=== PATIENT | female | born 1945 | race Caucasian/White ===

== ENCOUNTER 2017-10-01 17:24 | Inpatient (IN) | payer MEDICARE, OTHER ==
[~2017-10-01] VITALS: Ht 162.6 cm; Wt 80.0 kg
[2017-10-01 11:00] VITALS: BP 117/61
[~2017-10-01 17:24] MED LIST: ALPR1TAB7 PO; AMLO2.5T2 PO; ASPI-12 PO; BUSP10TA11 PO; CELE200C PO; CEPH500C5 PO; CETI-102 PO; CHLO500T2 PO; D-MA1POW PO; DIVA250T6 PO; DIVA500T7 PO; DOCU100C40 PO; FENO45CA2 PO; FLUO15OI15 TOP; GABA600T2 PO; GLIP1TAB5 PO; HYDR-565 PO; LACT1TAB27 PO; LEVO25TA7 PO; LOP25T PO; ONDA4TAB12 PO; OXYB15TA PO; PANT40TA39 PO; PHEN51GE TP; POLY17PO10 PO; PRIM50TA31 PO; ROPI0.5T PO; SENN8.6C6 PO; TOLT2CAP PO; TRAZ-146 PO; VENL150T3 PO; VENL75TA4 PO; WHEA98PO PO; ZOL50T PO; [UNRECOGNIZED DRUG - CODE] PO
[2017-10-01] MEDS ORDERED: methylPREDNISolone sod succ 125mg/2ml vial IV ONE (17:30)
[2017-10-01] MEDS ORDERED: albuterol 2.5 MG/3 ML nebule NEB ONE (17:30)
[2017-10-01 18:45] LABS: ALANINE AMINOTRANSFERASE 22 U/L (12-78); ALBUMIN 3.1 G/DL (3.4-5.0); ALBUMIN/GLOBULIN RATIO 0.8 (1.1-1.5); ALKALINE PHOSPHATASE 80 IU/L (46-116); ANION GAP 12 (8-16); ASPARTATE AMINO TRANSFERASE 18 U/L (10-37); BILIRUBIN,TOTAL 0.2 MG/DL (0.1-1.0); BLOOD UREA NITROGEN 34 MG/DL (7-18); BUN/CREATININE RATIO 34.3 (6.6-38.0); CHLORIDE 105 MMOL/L (99-107); CREATININE 0.99 MG/DL (0.40-0.90); GLUCOSE 181 MG/DL (70-104); POTASSIUM 4.4 MMOL/L (3.5-5.1); SODIUM 141 MMOL/L (135-145); TOTAL CARBON DIOXIDE 23.7 MMOL/L (24-32); TOTAL PROTEIN 6.9 G/DL (6.4-8.2); eGFR 55 ML/MIN
[2017-10-01] MEDS: cefepime 1GM/NS ADD-VANTAGE 100 ML IV SCH ×2 (18:53→23:45)
[2017-10-01 18:59] LABS: BASOPHILS % (AUTO) 0.3 % (0-1); EOSINOPHILS # (AUTO) 0.2 X10'3 (0-0.9); EOSINOPHILS % (AUTO) 2.5 % (0-6); HEMOGLOBIN 11.5 g/dl (12.0-16.0); LYMPHOCYTES # (AUTO) 1.3 X10'3 (1.1-4.8); LYMPHOCYTES % (AUTO) 14.1 % (21-51); MEAN CORPUSCULAR HEMOGLOBIN 29.9 PG (27.0-31.0); MEAN CORPUSCULAR HGB CONC 33.8 % (33.0-36.5); MEAN CORPUSCULAR VOLUME 88.4 FL (78-98); MONOCYTES # (AUTO) 0.6 X10'3 (0-0.9); MONOCYTES % (AUTO) 6.7 % (2-12); NEUTROPHILS % (AUTO) 76.4 % (42-75); PLATELET COUNT 269 X10'3 (140-440); RED BLOOD COUNT 3.84 X10'6 (4.20-5.60); RED CELL DISTRIBUTION WIDTH 12.7 % (11.5-14.5); WHITE BLOOD COUNT 9.1 X10'3 (4.5-11.0)
[2017-10-01] MEDS ORDERED: ASPI-612 (21:48)
[2017-10-01] MEDS ORDERED: CLON1PAT15 TOP (21:53)
[2017-10-01] MEDS ORDERED: INSU100V5 IJ (21:56)
[2017-10-01] MEDS ORDERED: ESOM20CA PO (21:56)
[2017-10-01] MEDS ORDERED: LANTUS SQ (21:58)
[2017-10-01] MEDS ORDERED: MAGN54LI PO (22:00)
[2017-10-01] MEDS ORDERED: ondansetron/PF 4mg/2ml inj IV PRN (22:00)
[2017-10-01] MEDS ORDERED: albuterol 2.5 MG/3 ML nebule NEB PRN (22:00)
[2017-10-01] MEDS ORDERED: PRAV10TA39 PO (22:01)
[2017-10-01] MEDS ORDERED: MULT-685 (22:01)
[2017-10-01] MEDS ORDERED: VALS80TA26 PO (22:02)
[2017-10-01] MEDS ORDERED: VALP250S3 (22:04)
[2017-10-01] MEDS ORDERED: glucagon, human recombinant 1mg kit SUBCUT PRN (22:05)
[2017-10-01] MEDS ORDERED: dextrose ORAL solution 15 GM/59 ML bottle PO PRN ×2 (22:05)
[2017-10-01] MEDS ORDERED: dextrose 50%-water 50ml dispensing syringe IV PRN ×2 (22:05)
[2017-10-01] MEDS ORDERED: insulin Lispro (HumaLOG) vial - multi-dose SQ SCH (22:05)
[2017-10-01] MEDS ORDERED: MESSAGE TO PHARMACY PO ONE (22:05)
[2017-10-01] MEDS ORDERED: VALP250S4 (22:09)
[2017-10-01] MEDS ORDERED: OFLO5DRO3 (22:13)
[2017-10-01] MEDS ORDERED: cloNIDine 0.2 MG/24 HR patch (7 day patch) TD SCH (22:30)
[2017-10-01 23:14] LABS: HEMOGLOBIN A1C 5.9 % (4.5-6.2)
[2017-10-01 23:30] VITALS: BP 117/61
[2017-10-01] MEDS: normal saline 1000ml 1,000 ML IV SCH (23:48)
[2017-10-02 05:00] VITALS: BP 122/71
[2017-10-02 06:43] LABS: BASOPHILS % (AUTO) 0 % (0-1); EOSINOPHILS # (AUTO) 0.1 X10'3 (0-0.9); EOSINOPHILS % (AUTO) 0.8 % (0-6); HEMATOCRIT 30.4 % (35.0-45.0); HEMOGLOBIN 10.6 g/dl (12.0-16.0); LYMPHOCYTES # (AUTO) 0.8 X10'3 (1.1-4.8); LYMPHOCYTES % (AUTO) 8.8 % (21-51); MEAN CORPUSCULAR HEMOGLOBIN 30.4 PG (27.0-31.0); MEAN CORPUSCULAR HGB CONC 34.9 % (33.0-36.5); MEAN CORPUSCULAR VOLUME 87.1 FL (78-98); MEAN PLATELET VOLUME 7.7 FL (7.4-10.4); MONOCYTES # (AUTO) 0.4 X10'3 (0-0.9); MONOCYTES % (AUTO) 5.2 % (2-12); NEUTROPHILS # (AUTO) 7.3 X10'3 (1.8-7.7); NEUTROPHILS % (AUTO) 85.2 % (42-75); PLATELET COUNT 254 X10'3 (140-440); RED BLOOD COUNT 3.49 X10'6 (4.20-5.60); RED CELL DISTRIBUTION WIDTH 12.9 % (11.5-14.5); WHITE BLOOD COUNT 8.6 X10'3 (4.5-11.0)
[2017-10-02] MEDS ORDERED: levoTHYROXINE 25mcg tablet PO SCH (07:00)
[2017-10-02 07:07] LABS: ALANINE AMINOTRANSFERASE 23 U/L (12-78); ALBUMIN/GLOBULIN RATIO 0.8 (1.1-1.5); ALKALINE PHOSPHATASE 72 IU/L (46-116); ANION GAP 10 (8-16); ASPARTATE AMINO TRANSFERASE 17 U/L (10-37); BILIRUBIN,TOTAL 0.2 MG/DL (0.1-1.0); BLOOD UREA NITROGEN 39 MG/DL (7-18); BUN/CREATININE RATIO 39.4 (6.6-38.0); CALCIUM 9.1 MG/DL (8.5-10.1); CHLORIDE 107 MMOL/L (99-107); CREATININE 0.99 MG/DL (0.40-0.90); GLUCOSE 142 MG/DL (70-104); POTASSIUM 5.2 MMOL/L (3.5-5.1); SODIUM 143 MMOL/L (135-145); TOTAL CARBON DIOXIDE 25.8 MMOL/L (24-32); TOTAL PROTEIN 6.7 G/DL (6.4-8.2); eGFR 55 ML/MIN
[2017-10-02] MEDS: cefepime 1GM/NS ADD-VANTAGE 100 ML IV SCH ×3 (07:27→23:26)
[2017-10-02] MEDS: pantoprazole 40 MG vial IV SCH (07:30)
[2017-10-02] MEDS: heparin, porcine 5000 units/ml vial SQ SCH ×2 (07:30→20:49)
[2017-10-02] MEDS ORDERED: GLIPIZIDE PO SCH (08:00)
[2017-10-02] MEDS ORDERED: MAGNESIUM CARBONATE PO SCH (08:00)
[2017-10-02] MEDS ORDERED: metoprolol tartrate 25mg tablet PO SCH (08:00)
[2017-10-02] MEDS ORDERED: METFORMIN HCL PO SCH (08:00)
[2017-10-02 10:00] VITALS: BP 128/65
[2017-10-02] MEDS ORDERED: ondansetron 4mg rapidly disintigrating tab PO PRN (14:30)
[2017-10-02] MEDS: normal saline 1000ml 1,000 ML IV SCH (15:42)
[2017-10-02] MEDS ORDERED: lactobacillus rhamnosus 10,000 MMU CELLS/CAPSULE PO SCH (17:30)
[2017-10-02 18:10] VITALS: BP 139/74
[2017-10-02] MEDS ORDERED: acetaminophen 650mg rectal suppository RC PRN (19:00)
[2017-10-02 19:32] LABS: VALPROATE < 3.0 UG/ML (50-100)
[2017-10-02] MEDS: docusate sod 100mg capsule PO SCH (20:00)
[2017-10-02] MEDS ORDERED: metoprolol tartrate 50mg tablet PO SCH (20:00)
[2017-10-02] MEDS ORDERED: ALPRAZolam 0.5mg tablet PO SCH (20:00)
[2017-10-02] MEDS: aspirin 300mg supp.rect RC SCH (20:49)
[2017-10-02] MEDS: valproate sod inj 500 MG in normal saline 100ml IV soln 95 ML IV SCH (20:49)
[2017-10-02] MEDS ORDERED: insulin glargine (Lantus) pen - multi-dose SQ SCH (21:00)
[2017-10-02] MEDS: insulin glargine (Lantus) pen - multi-dose SQ SCH (21:00)
[2017-10-02] MEDS ORDERED: primidone 50mg tablet PO SCH (21:00)
[2017-10-02] MEDS ORDERED: valproate sod 250mg/5ml UD oral syrup PEG SCH (21:00)
[2017-10-02 22:00] VITALS: BP 156/84
[2017-10-02] MEDS: LORazepam 2 mg/ml vial IV PRN (23:39)
[2017-10-03 06:00] VITALS: BP 153/96
[2017-10-03 06:40] LABS: BASOPHILS % (AUTO) 0.5 % (0-1); EOSINOPHILS # (AUTO) 0.2 X10'3 (0-0.9); EOSINOPHILS % (AUTO) 3.6 % (0-6); HEMATOCRIT 32.2 % (35.0-45.0); HEMOGLOBIN 11.1 g/dl (12.0-16.0); LYMPHOCYTES # (AUTO) 1.1 X10'3 (1.1-4.8); MEAN CORPUSCULAR HEMOGLOBIN 30.3 PG (27.0-31.0); MEAN CORPUSCULAR HGB CONC 34.4 % (33.0-36.5); MEAN CORPUSCULAR VOLUME 88.2 FL (78-98); MEAN PLATELET VOLUME 7.8 FL (7.4-10.4); MONOCYTES # (AUTO) 0.6 X10'3 (0-0.9); MONOCYTES % (AUTO) 8.9 % (2-12); NEUTROPHILS # (AUTO) 4.4 X10'3 (1.8-7.7); PLATELET COUNT 251 X10'3 (140-440); RED BLOOD COUNT 3.65 X10'6 (4.20-5.60); RED CELL DISTRIBUTION WIDTH 12.7 % (11.5-14.5); WHITE BLOOD COUNT 6.3 X10'3 (4.5-11.0)
[2017-10-03 06:58] LABS: ALANINE AMINOTRANSFERASE 22 U/L (12-78); ALBUMIN/GLOBULIN RATIO 0.8 (1.1-1.5); ALKALINE PHOSPHATASE 75 IU/L (46-116); ANION GAP 12 (8-16); ASPARTATE AMINO TRANSFERASE 15 U/L (10-37); BILIRUBIN,TOTAL 0.4 MG/DL (0.1-1.0); BLOOD UREA NITROGEN 21 MG/DL (7-18); BUN/CREATININE RATIO 22.6 (6.6-38.0); CALCIUM 8.8 MG/DL (8.5-10.1); CHLORIDE 108 MMOL/L (99-107); CREATININE 0.93 MG/DL (0.40-0.90); GLUCOSE 88 MG/DL (70-104); POTASSIUM 4.5 MMOL/L (3.5-5.1); SODIUM 146 MMOL/L (135-145); TOTAL CARBON DIOXIDE 25.6 MMOL/L (24-32); TOTAL PROTEIN 6.7 G/DL (6.4-8.2); eGFR 60 ML/MIN
[2017-10-03] MEDS: normal saline 1000ml 1,000 ML IV SCH ×2 (07:16→17:47)
[2017-10-03] MEDS ORDERED: cetirizine 10mg tablet PO SCH (08:00)
[2017-10-03] MEDS ORDERED: atorvastatin 10mg tablet PO SCH (08:00)
[2017-10-03] MEDS: docusate sod 100mg capsule PO SCH ×2 (08:00→19:02)
[2017-10-03] MEDS ORDERED: non-formulary drug (Esomeprazole Mag Trihydrate* (Nexium*) 1 CAP) PO SCH (08:00)
[2017-10-03] MEDS ORDERED: valproate sod 250mg/5ml UD oral syrup PEG SCH (08:00)
[2017-10-03] MEDS ORDERED: aspirin 81mg tablet.DR PO SCH (08:00)
[2017-10-03] MEDS: heparin, porcine 5000 units/ml vial SQ SCH ×2 (08:46→20:11)
[2017-10-03] MEDS: VALPROATE SOD IV SCH (08:47)
[2017-10-03] MEDS: pantoprazole 40 MG vial IV SCH (08:47)
[2017-10-03] MEDS: NORMAL SALINE IV SCH (08:47)
[2017-10-03 10:07] VITALS: BP 139/73
[2017-10-03] MEDS ORDERED: cloNIDine 0.2 MG/24 HR patch (7 day patch) TD SCH (10:10)
[2017-10-03] MEDS ORDERED: LEVO500T2 PO (11:19)
[2017-10-03] MEDS: cefepime 1GM/NS ADD-VANTAGE 100 ML IV SCH ×3 (11:40→23:58)
[2017-10-03] MEDS: lactobacillus rhamnosus 10,000 MMU CELLS/CAPSULE PO SCH (17:30)
[2017-10-03 18:00] VITALS: BP 165/76
[2017-10-03] MEDS: aspirin 300mg supp.rect RC SCH (20:10)
[2017-10-03] MEDS: valproate sod inj 500 MG in normal saline 100ml IV soln 95 ML IV SCH (20:11)
[2017-10-03] MEDS: insulin glargine (Lantus) pen - multi-dose SQ SCH (20:41)
[2017-10-03 22:00] VITALS: BP 184/85
[2017-10-04] MEDS: LORazepam 2 mg/ml vial IV PRN ×2 (00:04→12:38)
[2017-10-04] MEDS: hydrALAZINE 20mg/ml inj. IV PRN (00:54)
[2017-10-04 05:00] VITALS: BP 173/84
[2017-10-04 06:05] LABS: BASOPHILS % (AUTO) 0.4 % (0-1); EOSINOPHILS # (AUTO) 0.2 X10'3 (0-0.9); EOSINOPHILS % (AUTO) 2.4 % (0-6); HEMATOCRIT 32.6 % (35.0-45.0); HEMOGLOBIN 11.6 g/dl (12.0-16.0); LYMPHOCYTES % (AUTO) 12.6 % (21-51); MEAN CORPUSCULAR HEMOGLOBIN 30.6 PG (27.0-31.0); MEAN CORPUSCULAR HGB CONC 35.4 % (33.0-36.5); MEAN CORPUSCULAR VOLUME 86.5 FL (78-98); MEAN PLATELET VOLUME 7.3 FL (7.4-10.4); MONOCYTES # (AUTO) 0.7 X10'3 (0-0.9); MONOCYTES % (AUTO) 9.4 % (2-12); NEUTROPHILS # (AUTO) 5.8 X10'3 (1.8-7.7); NEUTROPHILS % (AUTO) 75.2 % (42-75); PLATELET COUNT 248 X10'3 (140-440); RED BLOOD COUNT 3.77 X10'6 (4.20-5.60); RED CELL DISTRIBUTION WIDTH 12.6 % (11.5-14.5); WHITE BLOOD COUNT 7.8 X10'3 (4.5-11.0)
[2017-10-04 07:16] LABS: ALANINE AMINOTRANSFERASE 15 U/L (12-78); ALBUMIN/GLOBULIN RATIO 0.7 (1.1-1.5); ALKALINE PHOSPHATASE 84 IU/L (46-116); ANION GAP 15 (8-16); ASPARTATE AMINO TRANSFERASE 12 U/L (10-37); BILIRUBIN,TOTAL 0.5 MG/DL (0.1-1.0); BLOOD UREA NITROGEN 16 MG/DL (7-18); BUN/CREATININE RATIO 21.9 (6.6-38.0); CALCIUM 9.1 MG/DL (8.5-10.1); CHLORIDE 103 MMOL/L (99-107); CREATININE 0.73 MG/DL (0.40-0.90); GLUCOSE 104 MG/DL (70-104); POTASSIUM 4.3 MMOL/L (3.5-5.1); SODIUM 141 MMOL/L (135-145); TOTAL CARBON DIOXIDE 23.5 MMOL/L (24-32); TOTAL PROTEIN 7.1 G/DL (6.4-8.2); eGFR 79 ML/MIN
[2017-10-04] MEDS: lactobacillus rhamnosus 10,000 MMU CELLS/CAPSULE PO SCH ×2 (07:30→17:30)
[2017-10-04] MEDS: docusate sod 100mg capsule PO SCH ×2 (07:33→19:09)
[2017-10-04] MEDS: pantoprazole 40 MG vial IV SCH ×2 (07:46→11:00)
[2017-10-04] MEDS: heparin, porcine 5000 units/ml vial SQ SCH ×3 (07:46→20:24)
[2017-10-04 10:00] VITALS: BP 148/85
[2017-10-04] MEDS: cefepime 1GM/NS ADD-VANTAGE 100 ML IV SCH ×3 (11:00→23:35)
[2017-10-04] MEDS: VALPROATE SOD IV SCH (11:37)
[2017-10-04] MEDS: NORMAL SALINE IV SCH (11:37)
[2017-10-04] MEDS: normal saline 1000ml 1,000 ML IV SCH (16:36)
[2017-10-04] MEDS: thiamine inj. 100 MG, magnesium sulf injection 2 GM, MVI, adult No.4 with vit. K 10 ML ... IV SCH ×4 (17:05)
[2017-10-04 18:00] VITALS: BP 152/89
[2017-10-04] MEDS: valproate sod inj 500 MG in normal saline 100ml IV soln 95 ML IV SCH (20:23)
[2017-10-04] MEDS: aspirin 300mg supp.rect RC SCH (20:24)
[2017-10-04] MEDS: insulin glargine (Lantus) pen - multi-dose SQ SCH (21:00)
[2017-10-04 22:00] VITALS: BP_SYST 139; BP_SYST 182; BP_DIAS 65; BP_DIAS 77
[2017-10-04 22:49] VITALS: BP 139/65
[2017-10-05] MEDS: normal saline 1000ml 1,000 ML IV SCH (01:18)
[2017-10-05 02:00] VITALS: BP 154/70
[2017-10-05 05:34] LABS: BASOPHILS % (AUTO) 0.5 % (0-1); EOSINOPHILS # (AUTO) 0.2 X10'3 (0-0.9); EOSINOPHILS % (AUTO) 3.8 % (0-6); HEMATOCRIT 32.4 % (35.0-45.0); HEMOGLOBIN 11.5 g/dl (12.0-16.0); LYMPHOCYTES # (AUTO) 1.2 X10'3 (1.1-4.8); LYMPHOCYTES % (AUTO) 20.2 % (21-51); MEAN CORPUSCULAR HEMOGLOBIN 30.8 PG (27.0-31.0); MEAN CORPUSCULAR HGB CONC 35.5 % (33.0-36.5); MEAN CORPUSCULAR VOLUME 86.8 FL (78-98); MEAN PLATELET VOLUME 7.3 FL (7.4-10.4); MONOCYTES # (AUTO) 0.5 X10'3 (0-0.9); MONOCYTES % (AUTO) 8.6 % (2-12); NEUTROPHILS % (AUTO) 66.9 % (42-75); PLATELET COUNT 272 X10'3 (140-440); RED BLOOD COUNT 3.74 X10'6 (4.20-5.60); WHITE BLOOD COUNT 5.9 X10'3 (4.5-11.0)
[2017-10-05 06:22] LABS: ALANINE AMINOTRANSFERASE 14 U/L (12-78); ALBUMIN 2.9 G/DL (3.4-5.0); ALBUMIN/GLOBULIN RATIO 0.7 (1.1-1.5); ALKALINE PHOSPHATASE 80 IU/L (46-116); ANION GAP 15 (8-16); ASPARTATE AMINO TRANSFERASE 13 U/L (10-37); BILIRUBIN,TOTAL 0.5 MG/DL (0.1-1.0); BLOOD UREA NITROGEN 20 MG/DL (7-18); BUN/CREATININE RATIO 22.2 (6.6-38.0); CALCIUM 9.6 MG/DL (8.5-10.1); CHLORIDE 109 MMOL/L (99-107); GLUCOSE 94 MG/DL (70-104); POTASSIUM 4.5 MMOL/L (3.5-5.1); SODIUM 147 MMOL/L (135-145); eGFR 62 ML/MIN
[2017-10-05 07:00] VITALS: BP 160/82
[2017-10-05] MEDS: docusate sod 100mg capsule PO SCH ×2 (07:21→20:00)
[2017-10-05] MEDS: lactobacillus rhamnosus 10,000 MMU CELLS/CAPSULE PO SCH ×2 (07:21→16:42)
[2017-10-05] MEDS: cefepime 1GM/NS ADD-VANTAGE 100 ML IV SCH ×2 (07:42→16:40)
[2017-10-05] MEDS: NORMAL SALINE IV SCH (07:43)
[2017-10-05] MEDS: VALPROATE SOD IV SCH (07:43)
[2017-10-05] MEDS: pantoprazole 40 MG vial IV SCH (07:43)
[2017-10-05] MEDS: heparin, porcine 5000 units/ml vial SQ SCH ×2 (07:44→20:42)
[2017-10-05] MEDS: thiamine inj. 100 MG, magnesium sulf injection 2 GM, MVI, adult No.4 with vit. K 10 ML ... IV SCH ×4 (10:20)
[2017-10-05 11:00] VITALS: BP 190/89
[2017-10-05] MEDS: hydrALAZINE 20mg/ml inj. IV PRN ×2 (11:25→20:42)
[2017-10-05 15:00] VITALS: BP 158/83
[2017-10-05 18:21] VITALS: BP 186/85
[2017-10-05] MEDS: valproate sod inj 500 MG in normal saline 100ml IV soln 95 ML IV SCH (20:41)
[2017-10-05] MEDS: aspirin 300mg supp.rect RC SCH (20:42)
[2017-10-05] MEDS: insulin glargine (Lantus) pen - multi-dose SQ SCH (21:00)
[2017-10-05 22:00] VITALS: BP 139/79
[2017-10-06] VITALS (8 sets, daily range): BP systolic 162–200; BP diastolic 71–96
[2017-10-06] MEDS: cefepime 1GM/NS ADD-VANTAGE 100 ML IV SCH ×3 (00:42→17:15)
[2017-10-06] MEDS: normal saline 1000ml 1,000 ML IV SCH ×2 (01:56→22:34)
[2017-10-06 06:10] LABS: BASOPHILS % (AUTO) 0.4 % (0-1); EOSINOPHILS # (AUTO) 0.2 X10'3 (0-0.9); EOSINOPHILS % (AUTO) 3.6 % (0-6); HEMATOCRIT 33.7 % (35.0-45.0); HEMOGLOBIN 11.9 g/dl (12.0-16.0); LYMPHOCYTES # (AUTO) 0.8 X10'3 (1.1-4.8); LYMPHOCYTES % (AUTO) 14.4 % (21-51); MEAN CORPUSCULAR HEMOGLOBIN 30.5 PG (27.0-31.0); MEAN CORPUSCULAR HGB CONC 35.4 % (33.0-36.5); MEAN PLATELET VOLUME 6.9 FL (7.4-10.4); MONOCYTES # (AUTO) 0.4 X10'3 (0-0.9); MONOCYTES % (AUTO) 7.5 % (2-12); NEUTROPHILS # (AUTO) 4.3 X10'3 (1.8-7.7); NEUTROPHILS % (AUTO) 74.1 % (42-75); PLATELET COUNT 296 X10'3 (140-440); RED BLOOD COUNT 3.92 X10'6 (4.20-5.60); RED CELL DISTRIBUTION WIDTH 12.9 % (11.5-14.5); WHITE BLOOD COUNT 5.9 X10'3 (4.5-11.0)
[2017-10-06 06:35] LABS: ALANINE AMINOTRANSFERASE 19 U/L (12-78); ALBUMIN/GLOBULIN RATIO 0.8 (1.1-1.5); ALKALINE PHOSPHATASE 80 IU/L (46-116); ANION GAP 19 (8-16); ASPARTATE AMINO TRANSFERASE 14 U/L (10-37); BILIRUBIN,TOTAL 0.5 MG/DL (0.1-1.0); BLOOD UREA NITROGEN 14 MG/DL (7-18); BUN/CREATININE RATIO 17.9 (6.6-38.0); CALCIUM 8.8 MG/DL (8.5-10.1); CHLORIDE 107 MMOL/L (99-107); CREATININE 0.78 MG/DL (0.40-0.90); GLUCOSE 96 MG/DL (70-104); SODIUM 144 MMOL/L (135-145); TOTAL CARBON DIOXIDE 17.7 MMOL/L (24-32); TOTAL PROTEIN 6.9 G/DL (6.4-8.2); eGFR 73 ML/MIN
[2017-10-06] MEDS: lactobacillus rhamnosus 10,000 MMU CELLS/CAPSULE PO SCH ×2 (07:30→17:25)
[2017-10-06] MEDS: heparin, porcine 5000 units/ml vial SQ SCH ×2 (08:00→20:56)
[2017-10-06] MEDS: docusate sod 100mg capsule PO SCH ×2 (08:00→20:00)
[2017-10-06] MEDS: pantoprazole 40 MG vial IV SCH (08:00)
[2017-10-06] MEDS: hydrALAZINE 20mg/ml inj. IV PRN ×2 (10:47→22:34)
[2017-10-06] MEDS: VALPROATE SOD IV SCH (10:53)
[2017-10-06] MEDS: NORMAL SALINE IV SCH (10:53)
[2017-10-06] MEDS: LORazepam 2 mg/ml vial IV PRN (11:47)
[2017-10-06] MEDS ORDERED: normal saline 1000ml 1,000 ML IV SCH (11:52)
[2017-10-06] MEDS ORDERED: LIDOcaine Viscous 15ml cup PO ONE (11:55)
[2017-10-06] MEDS ORDERED: MIDAZolam 5mg/5ml vial IV PRN (11:55)
[2017-10-06] MEDS ORDERED: fentaNYL/PF 50MCG/1 ML 2ML syringe IV PRN (11:55)
[2017-10-06] MEDS ORDERED: MIDAZolam 1mg/ml 10ml vial ONE (13:03)
[2017-10-06] MEDS ORDERED: fentaNYL/PF 50MCG/1 ML 2ML syringe ONE (13:03)
[2017-10-06] MEDS ORDERED: LIDOcaine Viscous 15ml cup ONE (13:03)
[2017-10-06] MEDS: aspirin 300mg supp.rect RC SCH (20:56)
[2017-10-06] MEDS: insulin glargine (Lantus) pen - multi-dose SQ SCH (21:00)
[2017-10-06] MEDS: valproate sod inj 500 MG in normal saline 100ml IV soln 95 ML IV SCH (22:34)
[2017-10-06] MEDS: thiamine inj. 100 MG, magnesium sulf injection 2 GM, MVI, adult No.4 with vit. K 10 ML ... IV SCH ×4 (22:35)
[2017-10-07] MEDS: cefepime 1GM/NS ADD-VANTAGE 100 ML IV SCH ×3 (01:22→15:57)
[2017-10-07 01:45] VITALS: BP 150/89
[2017-10-07] MEDS: hydrALAZINE 20mg/ml inj. IV PRN ×2 (04:54→17:34)
[2017-10-07 06:00] VITALS: BP 191/87
[2017-10-07] MEDS: lactobacillus rhamnosus 10,000 MMU CELLS/CAPSULE PO SCH ×2 (07:30→17:30)
[2017-10-07] MEDS: docusate sod 100mg capsule PO SCH ×2 (08:00→20:00)
[2017-10-07] MEDS: pantoprazole 40 MG vial IV SCH (08:32)
[2017-10-07] MEDS: NORMAL SALINE IV SCH (08:33)
[2017-10-07] MEDS: VALPROATE SOD IV SCH (08:33)
[2017-10-07] MEDS: heparin, porcine 5000 units/ml vial SQ SCH ×2 (08:44→21:03)
[2017-10-07 10:00] VITALS: BP_SYST 153; BP_SYST 200; BP_DIAS 85
[2017-10-07] MEDS: normal saline 1000ml 1,000 ML IV SCH (11:16)
[2017-10-07] MEDS: thiamine inj. 100 MG, magnesium sulf injection 2 GM, MVI, adult No.4 with vit. K 10 ML ... IV SCH ×4 (12:38)
[2017-10-07] MEDS ORDERED: insulin regular, human vial - multi-dose SQ SCH (14:08)
[2017-10-07 18:00] VITALS: BP 197/101
[2017-10-07] MEDS: insulin glargine (Lantus) pen - multi-dose SQ SCH (21:00)
[2017-10-07] MEDS: valproate sod inj 500 MG in normal saline 100ml IV soln 95 ML IV SCH (21:03)
[2017-10-07] MEDS: aspirin 300mg supp.rect RC SCH (21:03)
[2017-10-07 22:00] VITALS: BP 172/86
[2017-10-08] MEDS: cefepime 1GM/NS ADD-VANTAGE 100 ML IV SCH ×3 (00:37→16:48)
[2017-10-08 01:00] VITALS: BP 183/81
[2017-10-08] MEDS: hydrALAZINE 20mg/ml inj. IV PRN (01:04)
[2017-10-08 02:00] VITALS: BP 166/69
[2017-10-08] MEDS: normal saline 1000ml 1,000 ML IV SCH (05:19)
[2017-10-08 06:00] VITALS: BP 166/76
[2017-10-08] MEDS: lactobacillus rhamnosus 10,000 MMU CELLS/CAPSULE PO SCH ×2 (07:30→16:48)
[2017-10-08] MEDS: docusate sod 100mg capsule PO SCH (08:00)
[2017-10-08] MEDS: thiamine inj. 100 MG, magnesium sulf injection 2 GM, MVI, adult No.4 with vit. K 10 ML ... IV SCH ×4 (08:00)
[2017-10-08] MEDS: NORMAL SALINE IV SCH (09:49)
[2017-10-08] MEDS: VALPROATE SOD IV SCH (09:49)
[2017-10-08] MEDS: heparin, porcine 5000 units/ml vial SQ SCH (09:50)
[2017-10-08 10:00] VITALS: BP 149/76
[2017-10-08] MEDS: pantoprazole 40 MG vial IV SCH (10:26)
== END 2017-10-08 18:32 | disposition home or self-care (01) | DRG 177 ==
LOC: ER 17:24 → ED HOLD 21:56 → ORTHO 4S 22:30 → CMPBEDREQ 23:24
PROVIDERS: ADMIT Internal Medicine; ATTEND Family Medicine
PROC: 0DJ08ZZ Inspection of Upper Intestinal Tract, Via Natural or Artificial Opening Endoscopic (ICD-10-PCS; principal; 2017-10-06)
PROC: 0DH63UZ Insertion of Feeding Device into Stomach, Percutaneous Approach (ICD-10-PCS; 2017-10-06)
DX: J69.0 Pneumonitis due to inhalation of food and vomit (principal); I63.9 Cerebral infarction, unspecified; J96.01 Acute respiratory failure with hypoxia; T17.320A Food in larynx causing asphyxiation, initial encounter; E03.9 Hypothyroidism, unspecified; E11.9 Type 2 diabetes mellitus without complications; E86.0 Dehydration; K31.7 Polyp of stomach and duodenum; G40.909 Epilepsy, unspecified, not intractable, without status epilepticus; X58.XXXA Exposure to other specified factors, initial encounter; I10 Essential (primary) hypertension; E87.5 Hyperkalemia; F31.9 Bipolar disorder, unspecified; K21.9 Gastro-esophageal reflux disease without esophagitis; Z88.2 Allergy status to sulfonamides; Z88.0 Allergy status to penicillin; Z91.013 Allergy to seafood; Z79.4 Long term (current) use of insulin; Z79.82 Long term (current) use of aspirin; Z79.899 Other long term (current) drug therapy; Y93.89 Activity, other specified; Y92.89 Other specified places as the place of occurrence of the external cause; Y99.8 Other external cause status
CPT/HCPCS: 36415; 70544; 70551; 71045; 74230; 80053; 80164; 82948; 83036; 84443; 85025; 87070; 92507; 93005; 93880; 94640; 94760; 96374; 97110; 97161; 97530; 99285; A4620; A6209; A6213; A6402; C9113; G0500; J0360; J0692; J1644; J1815; J2060; J2250; J2930; J3010; J3411; J3475; J7030

== ENCOUNTER 2019-04-25 08:57 | Emergency (ER) | payer MEDICARE, OTHER ==
[~2019-04-25] VITALS: Ht 170.2 cm; Wt 90.0 kg
[~2019-04-25 08:57] MED LIST changes: -AMLO2.5T2 PO; -ASPI-12 PO; +ASPI-612; -BUSP10TA11 PO; -CELE200C PO; -CEPH500C5 PO; -CHLO500T2 PO; +CLON1PAT15 TOP; -D-MA1POW PO; -DIVA250T6 PO; -DIVA500T7 PO; +ESOM20CA PO; -FENO45CA2 PO; -FLUO15OI15 TOP; -GABA600T2 PO; -HYDR-565 PO; +INSU100V5 IJ; -LACT1TAB27 PO; +LANTUS SQ; +MAGN54LI PO; +MULT-685; +OFLO5DRO3; -OXYB15TA PO; -PANT40TA39 PO; -PHEN51GE TP; -POLY17PO10 PO; +PRAV10TA39 PO; -ROPI0.5T PO; -SENN8.6C6 PO; -TOLT2CAP PO; -TRAZ-146 PO; +VALP250S3; +VALP250S4; +VALS80TA32 PO; -VENL150T3 PO; -VENL75TA4 PO; -WHEA98PO PO; -ZOL50T PO; -[UNRECOGNIZED DRUG - CODE] PO
--- NOTE | 2019-04-25 09:48 | NUR ---
pt is refusing to accomplish PO challenge at this time
[2019-04-25 10:13] VITALS: BP 127/80
== END 2019-04-25 11:38 | disposition home or self-care (01) ==
LOC: ER 08:57
DX: R09.89 Other specified symptoms and signs involving the circulatory and respiratory systems (principal); F03.90 Unspecified dementia, unspecified severity, without behavioral disturbance, psychotic disturbance, mood disturbance, and anxiety; I10 Essential (primary) hypertension; K21.9 Gastro-esophageal reflux disease without esophagitis; E11.9 Type 2 diabetes mellitus without complications; F31.9 Bipolar disorder, unspecified; Z88.0 Allergy status to penicillin; Z88.2 Allergy status to sulfonamides; Z91.013 Allergy to seafood; Z79.899 Other long term (current) drug therapy; Z79.82 Long term (current) use of aspirin; Z79.4 Long term (current) use of insulin; Z86.73 Personal history of transient ischemic attack (TIA), and cerebral infarction without residual deficits; Z86.718 Personal history of other venous thrombosis and embolism; Z98.890 Other specified postprocedural states; Z90.49 Acquired absence of other specified parts of digestive tract
CPT/HCPCS: 99284

== ENCOUNTER 2020-08-19 18:08 | Emergency (ER) | payer MEDICARE, OTHER ==
[~2020-08-19] VITALS: Ht 160 cm; Wt 68.2 kg
[~2020-08-19 18:08] MED LIST changes: -ASPI-612; +ASPI-612 PO; -CETI-102 PO; +CHOL500050 PO; -CLON1PAT15 TOP; -ESOM20CA PO; +GABA-532 PO; -GLIP1TAB5 PO; -INSU100V5 IJ; -LANTUS SQ; -LEVO25TA7 PO; -LOP25T PO; -MAGN54LI PO; -MULT-685; +MULT-685 PO; -OFLO5DRO3; +OMEP10CA5 PO; -ONDA4TAB12 PO; -PRAV10TA39 PO; -PRIM50TA31 PO; +ROSU10TA2 PO; +SERT50TA PO; -VALP250S3; +VALP250S3 PO; -VALP250S4; -VALS80TA32 PO
[2020-08-19 20:05] LABS: BASOPHILS % (AUTO) 0.9 % (0-1); EOSINOPHILS # (AUTO) 0.2 X10'3 (0-0.9); EOSINOPHILS % (AUTO) 3.6 % (0-6); HEMATOCRIT 30.4 % (35.0-45.0); HEMOGLOBIN 10.3 g/dl (12.0-16.0); LYMPHOCYTES # (AUTO) 1.1 X10'3 (1.1-4.8); LYMPHOCYTES % (AUTO) 22.1 % (21-51); MEAN CORPUSCULAR HEMOGLOBIN 29.6 PG (27.0-31.0); MEAN CORPUSCULAR VOLUME 86.9 FL (78-98); MEAN PLATELET VOLUME 7.3 FL (7.4-10.4); MONOCYTES # (AUTO) 0.6 X10'3 (0-0.9); MONOCYTES % (AUTO) 11.6 % (2-12); NEUTROPHILS % (AUTO) 61.8 % (42-75); PLATELET COUNT 155 X10'3 (140-440); RED CELL DISTRIBUTION WIDTH 13.6 % (11.5-14.5); WHITE BLOOD COUNT 4.9 X10'3 (4.5-11.0)
[2020-08-19 20:26] LABS: ALANINE AMINOTRANSFERASE 21 U/L (12-78); ALBUMIN 3.1 G/DL (3.4-5.0); ALBUMIN/GLOBULIN RATIO 0.9 (1.1-1.5); ALKALINE PHOSPHATASE 69 IU/L (46-116); ANION GAP 5 (8-16); ASPARTATE AMINO TRANSFERASE 24 U/L (10-37); BILIRUBIN,TOTAL 0.2 MG/DL (0.1-1.0); BLOOD UREA NITROGEN 46 MG/DL (7-18); BUN/CREATININE RATIO 35.4 (6.6-38.0); CALCIUM 8.9 MG/DL (8.5-10.1); CHLORIDE 105 MMOL/L (99-107); GLUCOSE 107 MG/DL (70-104); POTASSIUM 4.1 MMOL/L (3.5-5.1); SODIUM 139 MMOL/L (135-145); TOTAL CARBON DIOXIDE 28.7 MMOL/L (24-32); TOTAL PROTEIN 6.6 G/DL (6.4-8.2); eGFR 40 ML/MIN
[2020-08-19 22:23] VITALS: BP 113/57
[2020-08-19 22:35] LABS: CLARITY,URINE CLOUDY (Clear); COLOR,URINE YELLOW (Yellow); GLUCOSE, URINE NEGATIVE (Neg); KETONES,URINE NEGATIVE (Neg); LEUKOCYTE ESTERASE ,URINE MODERATE (Neg); NITRITES, URINE NEGATIVE (Neg); OCCULT BLOOD,URINE SMALL (Neg); PH,URINE 5.5 (4.8-8.0); PROTEIN,URINE NEGATIVE (Neg); UA COLLECTION TYPE STRAIGHT CATH; UROBILINOGEN,URINE 0.2 E.U/dL (0.2-1.0)
[2020-08-19 23:11] LABS: BACTERIA,URINE 3+ /HPF (Neg); MUCUS STRANDS NONE SEEN /LPF (Neg); SQUAMOUS EPITHELIAL CELL,UR FEW /LPF (FEW); WBC CLUMPS,URINE MODERATE /HPF (NEGATIVE); WBC,URINE 50-100 /HPF (0-4)
[2020-08-19] MEDS ORDERED: levoFLOXACIN 750MG TABLET PO STA (23:26)
[2020-08-19] MEDS ORDERED: LEVO750T46 PO (23:28)
== END 2020-08-20 01:30 | disposition home or self-care (01) ==
LOC: ER 18:09
DX: N39.0 Urinary tract infection, site not specified (principal); F03.90 Unspecified dementia, unspecified severity, without behavioral disturbance, psychotic disturbance, mood disturbance, and anxiety; I10 Essential (primary) hypertension; K21.9 Gastro-esophageal reflux disease without esophagitis; E11.9 Type 2 diabetes mellitus without complications; Z90.49 Acquired absence of other specified parts of digestive tract; Z88.0 Allergy status to penicillin; Z88.2 Allergy status to sulfonamides; Z91.013 Allergy to seafood; Z79.82 Long term (current) use of aspirin; Z79.2 Long term (current) use of antibiotics; Z79.899 Other long term (current) drug therapy
CPT/HCPCS: 36415; 71045; 80053; 81001; 83880; 84484; 85025; 87077; 87088; 87186; 93005; 99285